=== PATIENT | male | born 1975 | race Caucasian/White ===

== ENCOUNTER 2018-06-09 01:19 | Emergency (ER) | payer BC, SELFPAY ==
[2018-06-09] MEDS ORDERED: Mag-Al Plus 1200 MG/1200 MG/120 MG/30 ML UDCUP ONE (01:56)
[2018-06-09] MEDS ORDERED: Lidocaine Viscous Sol 2% 15 ml UD Cup ONE (01:56)
[2018-06-09] MEDS ORDERED: Donnatal Elixir 16.2 MG/5 ML UDCUP ONE (01:56)
[2018-06-09 02:01] LABS: Bilirubin Negative (Negative); Blood, Urine Negative (Negative); Clarity Clear (Clear); Glucose, Urine (Dipstick) Negative (Negative); Leukocyte Negative (Negative); Nitrite Negative (Negative); Protein, Urine (Dipstick) Negative (Neg-Trace)
[2018-06-09 02:14] LABS: #Basophils 0.1 thou/uL (0.0-0.2); #Eosinphils 0.2 thou/uL (0.0-0.7); #Lymphocytes 2.6 thou/uL (1.20-3.40); #Monocytes 0.6 thou/uL (0.11-0.59); #Neutrophils 4.5 thou/uL (1.40-6.50); %Basophils 1.2 % (0.0-1.0); %Eosinophils 2.6 % (0.0-10.0); %Lymphocytes 32.3 % (21.0-51.0); %Monocytes 7.1 % (0.0-10.0); %Neutrophils 56.9 % (42.0-75.0); Hemoglobin 16.3 g/dL (14.0-18.0); Mean Corpuscular Hemoglobin 30.2 pg (27.0-31.0); Mean Corpuscular Volume 88.8 fL (78.0-98.0); Platelet Count 283 thou/uL (130-400); RBC Distribution Width 11.2 % (11.5-14.5); Red Blood Cell (RBC) Count 5.39 mill/uL (4.70-6.10); White Blood Cell (WBC) Count 7.9 thou/uL (4.8-10.8)
[2018-06-09 02:20] LABS: Bacteria/HPF None Seen HPF (None Seen); RBC/HPF None Seen HPF (0-3); Squamous Epithelial 0-3 HPF (0-3); WBC/HPF None Seen HPF (0-3)
[2018-06-09 02:29] LABS: ALT (SGPT) 75 U/L (8-55); AST (SGOT) 38 U/L (5-34); Albumin 4.4 g/dL (3.5-5.0); Alkaline Phosphatase 90 U/L (40-150); Anion Gap 12 mmol/L (10-20); BUN (Urea Nitrogen) 14 mg/dL (8.9-20.6); Bilirubin, Total 0.5 mg/dL (0.2-1.2); Calcium 9.6 mg/dL (7.8-10.44); Carbon Dioxide 26 mmol/L (22-29); Chloride 104 mmol/L (98-107); Globulin 2.6 g/dL (2.4-3.5); Glucose 99 mg/dL (70-105); Lipase 27 U/L (8-78); Potassium 4.1 mmol/L (3.5-5.1); Sodium 138 mmol/L (136-145)
[2018-06-09 02:38] LABS: Calc. Creatinine Clearance 0 mL/min (70-130); Estimated GFR-MDRD 75
--- NOTE | 2018-06-09 08:26 | RAD ---
CHEST 1 VIEW AND ABDOMEN 2 VIEWS: Date: 06/09/18 HISTORY: Right upper quadrant pain. FINDINGS/IMPRESSION: The heart size is normal. The lungs are clear. No free air or differential fluid levels are seen. The bowel gas pattern is unremarkable. No suspicious calcifications are identified. POS: [facility]
== END 2018-06-09 02:57 | disposition home or self-care (01) ==
LOC: MADERS 01:19
DX: R10.11 Right upper quadrant pain (principal); F17.220 Nicotine dependence, chewing tobacco, uncomplicated
CPT/HCPCS: 36415; 74022; 80053; 81001; 82150; 83690; 85025

== ENCOUNTER 2022-05-09 16:14 | Outpatient (CLI) | payer BC | END 2022-05-09 16:15 | disposition home or self-care (01) | LOC: MADLAB 16:14 → MADRAD 16:15 | PROVIDERS: ATTEND Internal Medicine | DX: J01.90 Acute sinusitis, unspecified (principal); R05.9 Cough, unspecified | CPT/HCPCS: 70220; 71046 ==

== ENCOUNTER 2025-05-06 08:15 | Outpatient (CLI) | payer BC ==
[2025-05-06 08:47] LABS: Cardiac Risk 3.6 (Less than 4.5); Cholesterol 125.0 mg/dl (< 200 Desired); HDL Cholesterol 35.0 mg/dL (>60 Neg Risk); LDL Cholesterol, Calculated 68.0 mg/dL; Triglycerides 110.0 mg/dL (Less than 150)
== END 2025-05-06 08:16 | disposition home or self-care (01) ==
LOC: MADLAB 08:15
PROVIDERS: ATTEND Internal Medicine Cardiovascular Disease
DX: I25.10 Atherosclerotic heart disease of native coronary artery without angina pectoris (principal)
CPT/HCPCS: 36415; 80061